=== PATIENT | female | born 1945 | race Caucasian/White ===

== ENCOUNTER → 2022-04-15 | Outpatient (CLI) | payer MEDICARE, SELFPAY ==
--- NOTE | 2022-04-15 09:50 | RAD_ITS ---
PROCEDURE: Fluoroscopic guided right shoulder Injection DATE: 04/15/2022. INDICATION: Female, 76 years old. Chronic shoulder pain. PHYSICIAN: Timoteo Garsia M.D. MEDICATIONS: 12 mg of BETAMETHASONE and 4 cc of 1% LIDOCAINE. 2% lidocaine administered subcutaneously for local anesthesia. ACCESS SITE: Right shoulder. NEEDLE: 22-gauge spinal needle. FLUOROSCOPY TIME (if supplied): (0:36) minutes/seconds. One image was submitted. FINDINGS: The risks, benefits, and alternatives to the procedure were explained to the patient. The specific risks of bleeding, infection, and neurovascular injury were detailed and accepted. Witnessed informed consent was obtained. A 22-gauge spinal needle was positioned under radiographic fluoroscopic localization. Approximately 2 cc of 300 instilled for localization purposes. Medication was then injected. The patient tolerated the procedure well without any immediate complications. RAD/Inj/[place] Jt Should/Hip/Knee IMPRESSION: 1. Successful fluoroscopic guided right shoulder injection. Electronically Signed: Timoteo Garsia MD at 11:01 EST ,
[2022-04-15] MEDS: Lidocaine 2% (5ml sdv) 5 ML VIAL.MPF INFILT (10:13)
[2022-04-15] MEDS: Lidocaine 1% (5 ml sdv) 5 ML Vial 4 ML OPERA.SITE (10:17)
[2022-04-15] MEDS: Betamethasone/Betamethasone 30 MG/5 ML Vial 12 MG INTRAARTIC (10:17)
== END | disposition home or self-care (01) ==
PROVIDERS: Visit Provider Specialist
DX: M19.011 Primary osteoarthritis, right shoulder (principal)
CPT/HCPCS: 20610; 77002; Q9965; J0702